=== PATIENT | male | born 1970 | race Caucasian/White ===

== ENCOUNTER 2018-11-12 18:50 | Emergency (ER) | payer BC ==
[~2018-11-12] VITALS: Ht 177.8 cm; Wt 61.2 kg
--- NOTE | 2018-11-12 19:39 | Diagnostic Imaging Report ---
RIGHT HAND X-RAY - 4 VIEWS HISTORY: ^[id number] ^1920 COMPARISON: None available. FINDINGS: Bones: No acute displaced fracture. Osseous alignment is within normal limits. Joints: The joint spaces are well-maintained. Soft tissues: Few 2 to 3 mm radiopaque foreign bodies in the superficial soft tissues adjacent to the first proximal phalanx and distal second metacarpal. Diffuse soft tissue swelling between the first and second digit. IMPRESSION: Few a small radiopaque foreign bodies adjacent to the right and first second digits. Signed by: Dr. Jeimy Van M.D. on 11/12/2018 7:35 PM
== END 2018-11-12 20:05 | disposition home or self-care (01) ==
LOC: FSED 18:50
DX: S61.441A Puncture wound with foreign body of right hand, initial encounter (principal); W45.8XXA Other foreign body or object entering through skin, initial encounter; Y93.H3 Activity, building and construction; Y92.008 Other place in unspecified non-institutional (private) residence as the place of occurrence of the external cause
CPT/HCPCS: 99283